=== PATIENT | female | born 1940 | race Two or more races ===

== ENCOUNTER 2017-02-27 11:07 | Emergency (ER) | payer OTHER, MEDICAID ==
[~2017-02-27] VITALS: Ht 160 cm; Wt 78.4 kg
[~2017-02-27 11:07] MED LIST: ALLO100T30 PO; CLON0.2T PO; DOCQLACE PO; LEVO75TA5 PO; METF500T4 PO; METO50TA82 PO; NAPR-868 PO; OMEP-110 PO; VALS1TAB24 PO
[2017-02-27 11:09] VITALS: BP 142/80
[2017-02-27] MEDS ORDERED: OXYcodone/APAP 5/325MG TABLET ONE (12:08)
[2017-02-27] MEDS ORDERED: ONDANSETRON ODT 4 MG ONE (12:09)
[2017-02-27] MEDS ORDERED: ONDANSETRON ODT 4 MG PO ONE (12:30)
[2017-02-27] MEDS ORDERED: OXYcodone/APAP 5/325MG TABLET PO ONE (12:30)
== END 2017-02-27 13:13 | disposition home or self-care (01) ==
LOC: ED 12:45
DX: M54.16 Radiculopathy, lumbar region (principal); E11.9 Type 2 diabetes mellitus without complications; I10 Essential (primary) hypertension; Z88.0 Allergy status to penicillin
CPT/HCPCS: 99283; J7512; Q0162